=== PATIENT | female | born 2000 | race Two or more races ===

== ENCOUNTER 2023-05-23 21:46 | Emergency (ER) | payer SELFPAY ==
[~2023-05-23] VITALS: Ht 167.6 cm; Wt 109.0 kg
[2023-05-23 21:55] VITALS: BP 133/82
[2023-05-23 22:16] LABS: Eosinophils # (auto) 0.2 10 ^3/uL (0-0.8); Lymphocytes # (auto) 3.5 10 ^3/uL (0.4-5.4); Red Cell Distribution Width 15.3 % (11.8-14.3)
[2023-05-23 22:18] LABS: Basophils # (auto) 0 10 ^3/uL (0-0.2); Basophils % (auto) 0.3 % (0.0-2.0); Eosinophils % (auto) 1.4 % (0.0-7.0); Hematocrit 39.1 % (36.0-46.0); Hemoglobin 12.2 g/dL (12.2-16.2); Lymphocytes % (auto) 26.1 % (10.0-50.0); Mean Corpuscular Hemoglobin 25.1 pg (28.0-32.0); Mean Corpuscular Hgb Conc. 31.2 g/dL (32.0-36.0); Mean Corpuscular Volume 80.4 fL (80.0-100.0); Monocytes # (auto) 1.3 10 ^3/uL (0-1.3); Monocytes % (auto) 9.6 % (0.0-12.0); Neutrophils # (auto) 8.4 10 ^3/uL (1.6-8.6); Neutrophils % (auto) 62.6 % (37.0-80.0); Nucleated Red Blood Cells % 0.1 %; Red Blood Cells 4.86 10^6/uL (4.0-5.20); White Blood Cell 13.5 10^3/uL (4.4-10.8)
[2023-05-23 22:30] LABS: Albumin 3.5 g/dL (3.4-5.0); Calcium 8.8 mg/dL (8.5-10.1); Magnesium 2.3 mg/dL (1.6-2.6); Partial Thromboplastin Time 29.5 SEC (24.5-34.5); Potassium 3.8 mmol/L (3.5-5.1)
[2023-05-23 22:35] LABS: Bilirubin, Total 0.2 mg/dL (0.2-1.0); Total Protein 7.8 g/dL (6.4-8.2)
== END 2023-05-24 02:27 | disposition left against medical advice (07) ==
LOC: ER 21:46
DX: R07.89 Other chest pain (principal); R10.13 Epigastric pain
CPT/HCPCS: 36415; 71045; 74176; 80053; 83735; 83880; 84484; 85025; 85610; 85730; 93005